=== PATIENT | male | born 1970 | race Caucasian/White ===

== ENCOUNTER → 2020-09-13 | Outpatient (CLI) | payer BC ==
[2020-09-13 07:36] LABS: ALBUMIN 4.3 g/dL (3.5-5.0); POTASSIUM 4.3 mmol/L (3.5-5.1)
[2020-09-13 07:37] LABS: CALCIUM 8.8 mg/dL (8.3-10.5)
[2020-09-13 07:38] LABS: TOTAL PROTEIN 7.2 g/dL (6.4-8.3)
[2020-09-13 07:40] LABS: TOTAL BILIRUBIN 0.4 mg/dL (0.2-1.2)
[2020-09-13 08:17] LABS: URINE APPEARANCE CLEAR; URINE BILIRUBIN NEGATIVE (NEGATIVE); URINE BLOOD 50 ery/uL (NEGATIVE); URINE COLOR YELLOW; URINE GLUCOSE NEGATIVE (NEGATIVE); URINE KETONE NEGATIVE (NEGATIVE); URINE LEUKOCYTE ESTERASE NEGATIVE (NEGATIVE); URINE NITRATE NEGATIVE (NEGATIVE); URINE PROTEIN(semi-quant) TRACE mg/dL (NEGATIVE); URINE UROBILINOGEN NORMAL (NORMAL); URINE WBC 0-1 /hpf (0-3)
== END ==
LOC: LAB 07:03
PROVIDERS: Family Medicine
DX: Z00.00 Encounter for general adult medical examination without abnormal findings (principal); Z12.5 Encounter for screening for malignant neoplasm of prostate; Z13.220 Encounter for screening for lipoid disorders; Z13.1 Encounter for screening for diabetes mellitus; Z20.2 Contact with and (suspected) exposure to infections with a predominantly sexual mode of transmission; N52.9 Male erectile dysfunction, unspecified

== ENCOUNTER → 2020-09-20 | Outpatient (CLI) | payer BC | LOC: LAB 12:11 | DX: R73.9 Hyperglycemia, unspecified (principal); U07.1 COVID-19 ==